=== PATIENT | female | born 1990 | race Caucasian/White ===

== ENCOUNTER 2018-10-26 12:46 | Outpatient (CLI) | payer OTHER, MEDICAID | END 2018-10-26 14:40 | disposition home or self-care (01) | LOC: OBT 12:46 → L-D 12:46 → OBT 14:40 | DX: O26.872 Cervical shortening, second trimester (principal); O26.852 Spotting complicating pregnancy, second trimester; Z3A.20 20 weeks gestation of pregnancy | CPT/HCPCS: G0463 ==

== ENCOUNTER 2018-11-04 18:27 | Outpatient (CLI) | payer OTHER, MEDICAID ==
[2018-11-04 20:05] LABS: ADD UMIC YES; UR ASCORBIC ACID NEGATIVE (NEGATIVE); UR BACTERIA FEW /HPF (NONE SEEN); UR BILIRUBIN (Dip) NEGATIVE (NEGATIVE); UR BLOOD (Dip) NEGATIVE (NEGATIVE); UR CLARITY CLEAR (CLEAR); UR COLOR STRAW (YELLOW); UR GLUCOSE (Dip) NEGATIVE (NEGATIVE); UR KETONES (Dip) NEGATIVE (NEGATIVE); UR LEUKOCYTE ESTERASE (Dip) 2+ Leu/ul (NEGATIVE); UR NITRITE (Dip) NEGATIVE (NEGATIVE); UR RBC 1 /HPF (0-5); UR SPECIFIC GRAVITY (Dip) 1.004 (1.003-1.030); UR SQUAMOUS EPITHELIAL CELL FEW /HPF (FEW); UR TOTAL PROTEIN (Dip) NEGATIVE (NEGATIVE); UR UROBILINOGEN (Dip) NEGATIVE (NEGATIVE); UR WBC 7 /HPF (0-5)
== END 2018-11-04 22:17 | disposition home or self-care (01) ==
LOC: OBT 18:27 → L-D 18:28 → OBT 22:17
DX: O26.892 Other specified pregnancy related conditions, second trimester (principal); Z3A.21 21 weeks gestation of pregnancy; R10.2 Pelvic and perineal pain
CPT/HCPCS: 76817; 81001; 87086

== ENCOUNTER 2019-02-13 18:23 | Inpatient (IN) | payer OTHER, MEDICAID ==
[2019-02-13] MEDS ORDERED: OXYTOCIN 30 UNITS/LR 500 ML IV ×3 (19:00→21:30)
[2019-02-13] MEDS ORDERED: CARBOPROST 250 MCG INJ IM (19:00)
[2019-02-13] MEDS ORDERED: OXYCODONE/ASPIRIN (4.88/325) TAB PO (19:00)
[2019-02-13] MEDS ORDERED: BUTORPHANOL 2 MG INJ IV (19:00)
[2019-02-13] MEDS ORDERED: IBUPROFEN 600 MG TAB PO (19:00)
[2019-02-13] MEDS ORDERED: LIDOCAINE 1% (MPF) 30 ML INJ INJ (19:00)
[2019-02-13] MEDS ORDERED: METHYLERGONOVINE 0.2 MG INJ IM (19:00)
[2019-02-13] MEDS ORDERED: MISOPROSTOL 200 MCG TAB PR (19:00)
[2019-02-13 19:05] LABS: ADD MAN DIFF? NO
[2019-02-13] MEDS: LACTATED RINGER'S 1,000 ML IV ×3 (19:06→20:32)
[2019-02-13 19:08] LABS: WHITE BLOOD COUNT 11.9 10^3/ul (4.8-10.8)
[2019-02-13 19:08] LABS: BASOPHILS % 0.3 % (0.0-2.0); EOSINOPHILS # 0.1 10^3/ul (0.0-0.5); EOSINOPHILS % 0.8 % (0.0-7.0); HEMATOCRIT 34.9 % (37.0-47.0); HEMOGLOBIN 11.5 g/dl (12.0-16.0); LYMPHOCYTES % 16.7 % (15.0-51.0); MEAN CORPUSCULAR VOLUME 88.1 fl (82.0-101.0); MONOCYTE # 0.5 10^3/ul (0.3-0.9); MONOCYTES % 4.3 % (0.0-11.0); NEUTROPHIL # 9.2 10^3/ul (1.6-7.5); NEUTROPHILS % 77.3 % (39.0-77.0); PLATELET COUNT 259 10^3/UL (140-415); RED BLOOD COUNT 3.96 10^6/ul (4.20-5.40); RED CELL DISTRIBUTION WIDTH 14.6 % (11.5-14.5)
[2019-02-13 19:32] LABS: INR 0.91; PROTIME 12.4 Sec (11.9-14.9)
[2019-02-13 19:33] LABS: PARTIAL THROMBOPLASTIN TIME 27.7 Sec (23.0-35.0)
[2019-02-13] MEDS ORDERED: FENTAnyl 2MCG/ML-ROPIV 0.2% 100 ML (20:03)
[2019-02-13] MEDS ORDERED: FENTAnyl 2MCG/ML-ROPIV 0.2% 100 ML BAG EPI (21:00)
[2019-02-13] MEDS ORDERED: DIPHENHYDRAMINE 50 MG INJ IV (21:00)
[2019-02-13] MEDS ORDERED: ONDANSETRON 4 MG INJ IV (21:00)
[2019-02-13] MEDS ORDERED: NALOXONE (0.4 MG/ML) INJ IV (21:00)
[2019-02-13] MEDS ORDERED: ALBUTEROL HFA 8 GM INHALER INH (21:30)
[2019-02-14] MEDS: LACTATED RINGER'S 1,000 ML IV* ×3 (01:55→09:55)
[2019-02-14] MEDS: OXYTOCIN 30 UNITS/LR 500 ML IV ×2 (01:55→01:58)
[2019-02-14] MEDS ORDERED: CARBOPROST 250 MCG INJ IM (02:00)
[2019-02-14] MEDS ORDERED: MISOPROSTOL 200 MCG TAB PR (02:00)
[2019-02-14] MEDS ORDERED: OXYTOCIN 30 UNITS/LR 500 ML IV (02:00)
[2019-02-14] MEDS ORDERED: ALBUTEROL HFA 8 GM INHALER INH (02:00)
[2019-02-14] MEDS ORDERED: METHYLERGONOVINE 0.2 MG INJ IM (02:00)
[2019-02-14] MEDS ORDERED: HYDROCODONE/APAP (5/325) TAB PO (02:00)
[2019-02-14] MEDS: IBUPROFEN 600 MG TAB PO ×3 (05:55→17:31)
[2019-02-14 14:57] LABS: RAPID PLASMA REAGIN NONREACTIVE (NR)
[2019-02-14] MEDS: LANOLIN HPA 1 PKT TOP (22:01)
[2019-02-15] MEDS: IBUPROFEN 600 MG TAB PO ×4 (05:41→18:06)
[2019-02-15 08:24] LABS: ADD MAN DIFF? NO
[2019-02-15 08:37] LABS: WHITE BLOOD COUNT 11.4 10^3/ul (4.8-10.8)
[2019-02-15 08:37] LABS: BASOPHILS % 0.4 % (0.0-2.0); EOSINOPHILS # 0.2 10^3/ul (0.0-0.5); EOSINOPHILS % 1.7 % (0.0-7.0); HEMATOCRIT 29.2 % (37.0-47.0); HEMOGLOBIN 9.7 g/dl (12.0-16.0); LYMPHOCYTES # 2.8 10^3/ul (0.8-2.9); LYMPHOCYTES % 24.4 % (15.0-51.0); MEAN CORPUSCULAR HEMOGLOBIN 28.9 pg (29.0-33.0); MEAN CORPUSCULAR HGB CONC 33.2 g/dl (32.0-37.0); MEAN CORPUSCULAR VOLUME 86.9 fl (82.0-101.0); MEAN PLATELET VOLUME 11.7 fl (7.4-10.4); MONOCYTE # 0.9 10^3/ul (0.3-0.9); MONOCYTES % 7.7 % (0.0-11.0); NEUTROPHIL # 7.4 10^3/ul (1.6-7.5); PLATELET COUNT 221 10^3/UL (140-415); RED BLOOD COUNT 3.36 10^6/ul (4.20-5.40); RED CELL DISTRIBUTION WIDTH 14.6 % (11.5-14.5)
[2019-02-16] MEDS: IBUPROFEN 600 MG TAB PO ×3 (00:29→11:42)
[2019-02-16] MEDS: LANOLIN HPA 1 PKT TOP (05:48)
[2019-02-16] MEDS: DIPHTH/TET/ACEL PERTUSS (ADULT) 0.5 ML VIAL IM* (11:44)
== END 2019-02-16 16:20 | disposition home or self-care (01) | DRG 807 ==
LOC: PP1 02-14 03:11 → L-D 18:23
PROVIDERS: Obstetrics & Gynecology
PROC: 10E0XZZ Delivery of Products of Conception, External Approach (ICD-10-PCS; principal; 2019-02-14)
DX: O80 Encounter for full-term uncomplicated delivery (principal); Z37.0 Single live birth; Z3A.36 36 weeks gestation of pregnancy
CPT/HCPCS: 62322; 85025; 85610; 85730; 86592; 86850; 86900; 86901; 90715